=== PATIENT | male | born 1945 | race Caucasian/White ===

== ENCOUNTER → 2016-12-23 | Outpatient (REF) | payer OTHER | LOC: M SMT 12:48 | PROVIDERS: ATTEND Nurse Practitioner Women's Health | DX: R35.0 Frequency of micturition (principal) | CPT/HCPCS: 51798; 81001; 87086; G0463 ==

== ENCOUNTER 2018-01-10 16:08 | Emergency (ER) | payer OTHER ==
[2018-01-10] MEDS: FLUORESCEIN OPHTH 1 MG STRIP OU (17:51)
[2018-01-10] MEDS: valACYclovir HCL 500 MG TAB PO (18:00)
[2018-01-10] MEDS: NORCO, ANEXSIA 5/325MG TABLET (HYDROcodone/ACETAMINOPHEN) PO (18:00)
[2018-01-10] MEDS: ACYCLOVIR 5% OINT 15GM TOP (19:15)
== END 2018-01-10 19:30 | disposition home or self-care (01) ==
LOC: M ED 16:08
DX: B02.9 Zoster without complications (principal); B30.9 Viral conjunctivitis, unspecified; F17.200 Nicotine dependence, unspecified, uncomplicated
CPT/HCPCS: 99283

== ENCOUNTER 2019-03-02 11:27 | Day surgery (SDC) | payer MEDICARE ==
[~2019-03-02] VITALS: Ht 170.2 cm; Wt 83.5 kg
[~2019-03-02 11:27] MED LIST: ASPI81TA26 PO; ATOR1TAB19 PO; CYCL5TAB PO; HYDR-3715 PO; LIDOCAINE 2% W/EPIN INJ 20ML **PRES FREE As Ordered ONE; MIDAZOLAM INJ 2 MG/2 ML VIAL (J2250) As Ordered ONE; POVIDONE-IODINE 5% OPHTH PREP SOL 30ML As Ordered ONE; PREG100CA PO; TYLETAB14 PO; VALT1TAB PO
[2019-03-02] MEDS ORDERED: mitoMYcin 0.2 MG/VIAL KIT FOR OPHTHALMIC USE (J7315 PER 0.2MG) As Ordered ONE (13:46)
[2019-03-02] MEDS ORDERED: fentaNYL 100 MCG/2 ML INJECTION (J3010) As Ordered ONE (13:56)
[2019-03-02] MEDS ORDERED: TOBRADEX OPHTH OINT 3.5 GM As Ordered ONE (14:14)
[2019-03-02 14:55] VITALS: BP 160/73
--- NOTE | 2019-03-03 11:42 | RO ---
DATE OF PROCEDURE: 03/02/2019 PREPROCEDURE DIAGNOSIS: 1. Peripheral progressive pterygium, left eye. POSTPROCEDURE DIAGNOSIS: 1. Peripheral progressive pterygium, left eye. PROCEDURE: 1. Excision of peripheral progressive pterygium of the left eye with use of Tissel glue and placement of a cryopreserved amniotic membrane graft (6 mm x 5 mm) and use of Mitomycin C (0.2% concentration). SURGEON: Dr. Stewart Hough. 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 DESCRIPTION OF PROCEDURE: The patient was seen and examined in the preoperative area. Consents were reviewed and the surgical site was marked. The patient was transferred to the operating room. The eye was prepped and draped in a sterile fashion. A Tegaderm was used to isolate the upper and lower eyelids and a wide lid speculum was placed. 1% lidocaine with epinephrine was injected into the superior and inferior conjunctiva to create a billowing effect. This was spread with a cotton-tip applicator. Approximately 0.2 mL were injected. At that time, using a sharp-tipped Rashad and a 0.12 forceps, the head of the pterygium was excised from the cornea an sent to pathology for examination. The incision was then carried approximately 2 mm posterior to the corneal limbus and this tissue was then discarded. Using a crescent blade, the corneal surface was then polished until a smooth surface was obtained. Gentle wet-field cautery was applied as needed for any light bleeding. Any visible tenon capsule was then removed using a smooth-tipped forceps and then discarded. The conjunctival defect was measured to be approximately 6 x 5 mm. A cryopreserved amniotic membrane graft was fashioned to this size and then placed onto the eye base of membrane side up. Mitomycin C was then mixed at the back table. A mitomycin C soaked sponge was placed into the conjunctiva pocket for approximately 30 seconds and then washed vigorously with three vials of balanced salt solution (BSS). The amniotic graft was placed on the surface of the eye. Tissel glue was then brought to the patient's eye and then placed with two drops of fibrin and then two drops of thrombin and then the graft was flipped over so the base of the membrane was down. This was then smooth with bent tying forceps until the graft was adherent. The using a tissue-tuck technique, the edges were sealed with bent forceps to the amniotic membrane graft. Patient tolerated the procedure well. A bandage contact lens was placed, TobraDex ointment and patch and shield were placed. Patient was discharged to the postanesthesia care unit (PACU) in stable condition. LION
== END 2019-03-02 15:10 | disposition home or self-care (01) ==
LOC: M SDC 11:27
PROVIDERS: ATTEND Ophthalmology
DX: H11.052 Peripheral pterygium, progressive, left eye (principal); M06.9 Rheumatoid arthritis, unspecified; Z79.899 Other long term (current) drug therapy; Z79.82 Long term (current) use of aspirin; F17.210 Nicotine dependence, cigarettes, uncomplicated
CPT/HCPCS: 65426; 88304; A6024; C1762; J2250; J3010; J7315

== ENCOUNTER 2019-03-06 08:27 | Emergency (ER) | payer MEDICARE ==
[~2019-03-06] VITALS: Ht 170.2 cm; Wt 79.1 kg
[~2019-03-06 08:27] MED LIST changes: -LIDOCAINE 2% W/EPIN INJ 20ML **PRES FREE As Ordered ONE; -MIDAZOLAM INJ 2 MG/2 ML VIAL (J2250) As Ordered ONE; -POVIDONE-IODINE 5% OPHTH PREP SOL 30ML As Ordered ONE
[2019-03-06] MEDS ORDERED: BESI0.6S (08:38)
[2019-03-06] MEDS ORDERED: PREDOPD (08:38)
[2019-03-06] MEDS ORDERED: FLUORESCEIN OPHTH 1 MG STRIP OS ONE (09:30)
[2019-03-06] MEDS ORDERED: TETRACAINE 0.5% OPHTH SOLN 4ML OS ONE (09:45)
[2019-03-06 09:59] LABS: BASO % 0.3 % (0.0-1.0); EOS # 0.2 10^3/uL (0.0-0.50); EOS % 2.4 % (0.0-3.0); HEMATOCRIT 43.1 % (42.0-52.0); HEMOGLOBIN 13.7 g/dl (13.5-17.5); LYMPH # 2.1 10^3/uL (1.5-4.5); LYMPH % 33.8 % (24.0-44.0); MEAN CORPUSCULAR HEMOGLOBIN 28.4 pg (27.0-33.0); MEAN CORPUSCULAR HGB CONC 31.8 g/dl (32.0-36.5); MEAN CORPUSCULAR VOLUME 89.4 fl (80.0-96.0); MONO # 0.5 10^3/uL (0.0-0.8); MONO % 8.2 % (0.0-5.0); NEUTROPHILS # 3.5 10^3/uL (1.8-7.7); NEUTROPHILS % 55.1 % (36.0-66.0); PLATELET COUNT, AUTOMATED 243 10^3/uL (150-450); RED BLOOD COUNT 4.82 10^6/uL (4.30-6.10); WHITE BLOOD COUNT 6.3 10^3/uL (4.0-10.0)
[2019-03-06 10:20] LABS: ERYTHROCYTE SEDIMENTATION RATE 8 mm/hr (0-20)
[2019-03-06 10:28] LABS: BLOOD UREA NITROGEN 17 MG/DL (7-18); C REACTIVE PROTEIN QUANTITATIV 0.92 MG/DL (0.00-0.30); CARBON DIOXIDE LEVEL 28 MEQ/L (21-32); CHLORIDE LEVEL 108 MEQ/L (98-107); CREATININE FOR GFR 0.93 MG/DL (0.70-1.30); GLOMERULAR FILTRATION RATE > 60.0 (>42); GLUCOSE, FASTING 95 MG/DL (70-100); POTASSIUM SERUM 4.6 MEQ/L (3.5-5.1); SODIUM LEVEL 139 MEQ/L (136-145)
[2019-03-06 12:34] VITALS: BP 146/77
== END 2019-03-06 12:36 | disposition home or self-care (01) ==
LOC: M ED 08:27
DX: G89.18 Other acute postprocedural pain (principal); R51 Headache; E78.5 Hyperlipidemia, unspecified; M54.9 Dorsalgia, unspecified; F17.200 Nicotine dependence, unspecified, uncomplicated; Z79.899 Other long term (current) drug therapy; Z79.82 Long term (current) use of aspirin

== ENCOUNTER → 2019-07-13 | Outpatient (REF) | payer MEDICARE ==
[~2019-07-13] MED LIST changes: +BESI0.6S; +PREDOPD
[2019-07-13 18:59] LABS: BASO % 0.2 % (0.0-1.0); EOS % 0.4 % (0.0-3.0); HEMATOCRIT 37.3 % (42.0-52.0); HEMOGLOBIN 12.4 g/dl (13.5-17.5); LYMPH # 0.6 10^3/uL (1.5-5.0); MEAN CORPUSCULAR HEMOGLOBIN 29.8 pg (27.0-33.0); MEAN CORPUSCULAR HGB CONC 33.2 g/dl (32.0-36.5); MEAN CORPUSCULAR VOLUME 89.7 fl (80.0-96.0); MONO # 0.6 10^3/uL (0.0-0.8); MONO % 12.9 % (0.0-5.0); NEUTROPHILS # 3.3 10^3/uL (1.5-8.5); NEUTROPHILS % 72.5 % (36.0-66.0); PLATELET COUNT, AUTOMATED 185 10^3/uL (150-450); RED BLOOD COUNT 4.16 10^6/uL (4.30-6.10); WHITE BLOOD COUNT 4.6 10^3/uL (4.0-10.0)
[2019-07-13 19:22] LABS: ALBUMIN 3.6 GM/DL (3.2-5.2); ALT/SGPT 21 U/L (12-78); BILIRUBIN,TOTAL 0.3 MG/DL (0.2-1.0); BLOOD UREA NITROGEN 13 MG/DL (7-18); CALCIUM LEVEL 8.4 MG/DL (8.8-10.2); CARBON DIOXIDE LEVEL 26 MEQ/L (21-32); CHLORIDE LEVEL 102 MEQ/L (98-107); CREATININE FOR GFR 0.95 MG/DL (0.70-1.30); GLOMERULAR FILTRATION RATE > 60.0 (>42); GLUCOSE, FASTING 107 MG/DL (70-100); POTASSIUM SERUM 4.3 MEQ/L (3.5-5.1); SODIUM LEVEL 136 MEQ/L (136-145); TOTAL PROTEIN 6.9 GM/DL (6.4-8.2)
[2019-07-16 00:06] LABS: Lyme Disease IgG/IgM Antibodie <0.91 ISR (0.00-0.90); Lyme Disease IgM Ab Quantitati <0.80 index (0.00-0.79)
== END ==
LOC: M LABDRWAD 18:40
PROVIDERS: ATTEND Physician Assistant
DX: R50.9 Fever, unspecified (principal)

== ENCOUNTER → 2019-07-13 | Outpatient (CLI) | payer MEDICARE ==
--- NOTE | 2019-07-13 17:55 | REP ---
Chest x-ray: Two views. History: Fever. No comparison study. Findings: The lungs are slightly hyperinflated but free of infiltrate. The pleural angles are sharp. Heart size is normal. The thoracic aorta somewhat tortuous. No acute bony abnormality is seen. There are old healed rib fractures on the right. Impression: No active disease. Electronically Signed by Orlando Costello MD 07/13/2019 05:46 P
== END ==
LOC: M ADAMS 16:59
PROVIDERS: ATTEND Physician Assistant Medical
DX: R50.9 Fever, unspecified (principal)

== ENCOUNTER 2019-11-17 07:26 | Emergency (ER) | payer MEDICARE ==
[~2019-11-17] VITALS: Ht 170.2 cm; Wt 84.8 kg
[2019-11-17] MEDS ORDERED: ALBUTEROL SULFATE 2.5 MG/0.5 ML INH NEB SOLN NEB ONE (08:30)
[2019-11-17 09:05] LABS: BASO % 0.1 % (0.0-1.0); EOS # 0.1 10^3/uL (0.0-0.5); EOS % 0.4 % (0.0-3.0); HEMATOCRIT 40.8 % (42.0-52.0); LYMPH # 1.8 10^3/uL (1.5-5.0); LYMPH % 13.2 % (24.0-44.0); MEAN CORPUSCULAR HEMOGLOBIN 29.5 pg (27.0-33.0); MEAN CORPUSCULAR HGB CONC 31.9 g/dl (32.0-36.5); MEAN CORPUSCULAR VOLUME 92.7 fl (80.0-96.0); MONO # 0.6 10^3/uL (0.0-0.8); MONO % 4.3 % (0.0-5.0); NEUTROPHILS # 11.3 10^3/uL (1.5-8.5); NEUTROPHILS % 81.6 % (36.0-66.0); PLATELET COUNT, AUTOMATED 235 10^3/uL (150-450); WHITE BLOOD COUNT 13.8 10^3/uL (4.0-10.0)
--- NOTE | 2019-11-17 09:23 | REP ---
Chest x-ray: Two views. History: Shortness of breath. Comparison chest x-ray: July 13, 2019. Findings: There is new right paratracheal mediastinal fullness suggestive of adenopathy. Recommend CT study of the chest, preferably with IV contrast. The main mediastinal contours are unchanged and unremarkable. The aorta is somewhat tortuous. Heart is not enlarged. There is minimal linear fibrosis in the left base. There are old healed rib fractures on the right again noted. Lungs are otherwise clear. Impression: New right paratracheal mediastinal mass effect consistent with adenopathy. Recommend chest CT, preferably with IV contrast. Electronically Signed by Orlando Costello MD 11/17/2019 09:15 A
[2019-11-17 09:29] LABS: BLOOD UREA NITROGEN 29 MG/DL (7-18); CALCIUM LEVEL 8.7 MG/DL (8.8-10.2); CARBON DIOXIDE LEVEL 28 MEQ/L (21-32); CHLORIDE LEVEL 104 MEQ/L (98-107); CK-MB VALUE MASS 1.6 NG/ML (<3.6); CPK CREATINE PHOSPHOKINASE 53 U/L (39-308); CREATININE FOR GFR 1.01 MG/DL (0.70-1.30); GLOMERULAR FILTRATION RATE > 60.0 (>42); GLUCOSE, FASTING 95 MG/DL (70-100); MB/CK RELATIVE INDEX 3.02 (< OR =4); POTASSIUM SERUM 4.4 MEQ/L (3.5-5.1); SODIUM LEVEL 139 MEQ/L (136-145); TROPONIN I < 0.02 NG/ML (< 0.10)
[2019-11-17] MEDS ORDERED: ISOVUE-370 76% 100ML VIAL (Q9967) As Ordered ONE (10:40)
[2019-11-17 11:07] LABS: ERYTHROCYTE SEDIMENTATION RATE 5 mm/hr (0-20)
--- NOTE | 2019-11-17 11:42 | REP ---
INDICATION: Rule out mass PROCEDURE: CT head with and without contrast COMPARISON STUDIES: No prior similar studies FINDINGS: No acute bleed or acute large vessel territorial infarct. No fracture. Ventricles, cisterns and sulci within normal limits for age. No mass effect or midline shift. No abnormal fluid collections. Paranasal sinuses and mastoid air cells are clear. Following contrast, no abnormal enhancement. IMPRESSION: No acute findings. No evidence of mass lesion. Electronically Signed by Vince Santoro MD 11/17/2019 11:34 A
[2019-11-17 12:36] LABS: C REACTIVE PROTEIN QUANTITATIV < 0.30 MG/DL (0.00-0.30)
--- NOTE | 2019-11-17 12:39 | REP ---
CT CHEST WITH IV CONTRAST: TECHNIQUE: Axial contrast enhanced images from the thoracic inlet to the upper abdomen using 100 mL Isovue 370 intravenous contrast material with multiplanar reformations. Large right paratracheal soft tissue mass is seen measuring approximately 6.5 x 6.7 x 5.6 cm. This is somewhat anteriorly located with the epicenter at the superior margin of the aortic arch. Superior vena cava is moderately compressed and narrowed. There is slight deviation of the trachea to the left. No other mediastinal or hilar mass is seen. Thoracic aorta demonstrates no aneurysm or dissection. The heart is normal in size. There is mild pericardial fluid. No pleural fluid is seen. There is no axillary adenopathy. Mild scattered fibrotic changes are seen in the lungs without suspicious nodular opacity. There is a calcified granuloma at the dome of the liver. There are a few left renal cysts. There are degenerative changes of the spine. IMPRESSION: Large right mediastinal mass with the epicenter at the superior margin of the aortic arch. There is compression and narrowing of a moderate degree of the superior vena cava. No other mass or nodule is seen in the chest. Unreviewed
[2019-11-17 14:12] VITALS: BP 178/100
--- NOTE | 2019-11-18 09:49 | ECGEPIP ---
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
[2019-11-18 15:06] LABS: ANTINUCLEAR ANTIBODIES DIRECT Negative (Negative)
== END 2019-11-17 14:15 | disposition short-term general hospital (02) ==
LOC: M ED 07:26
DX: I87.1 Compression of vein (principal); J98.59 Other diseases of mediastinum, not elsewhere classified; I45.19 Other right bundle-branch block; H02.842 Edema of right lower eyelid; H02.845 Edema of left lower eyelid; Z86.19 Personal history of other infectious and parasitic diseases; E78.5 Hyperlipidemia, unspecified; G89.29 Other chronic pain; M54.9 Dorsalgia, unspecified; F17.200 Nicotine dependence, unspecified, uncomplicated; Z79.82 Long term (current) use of aspirin; Z79.899 Other long term (current) drug therapy
CPT/HCPCS: 70470; 71046; 71260; 80048; 81001; 82550; 82553; 84484; 85025; 85652; 86038; 86140; 86200; 86431; 93005; 94640; 99284; Q9967

== ENCOUNTER → 2020-11-30 | Outpatient (CLI) | payer MEDICARE ==
[~2020-11-30] MED LIST changes: +ACET300T47 PO; +ALBU8.5H; +MELA10CA2 PO; +REST0.05 OD; +TREL1AER PO; +TYLENOL; +XARE20TA PO; +[UNRECOGNIZED DRUG - OTHER]
== END ==
LOC: M LABSMTC 09:14
PROVIDERS: ATTEND Anesthesiology
DX: Z01.812 Encounter for preprocedural laboratory examination (principal); Z20.822 Contact with and (suspected) exposure to COVID-19

== ENCOUNTER 2020-12-05 10:53 | Day surgery (SDC) | payer MEDICARE ==
[~2020-12-05] VITALS: Ht 167.6 cm; Wt 85.9 kg
[~2020-12-05 10:53] MED LIST changes: +MIDAZOLAM INJ 2MG/2ML VIAL (J2250 PER 1MG) As Ordered ONE; +OFLOXACIN 0.3 % (OCUFLOX) OPTH SOL 5ML OS ONE; +PHENYLEPHRINE 2.5% OPHTH SOL 2ML OS ONE; +PROPARACAINE 0.5% OPHTH SOL 15ML OS ONE; +TROPICAMIDE 1% OPHTH SOLN 2ML OS ONE; +fentaNYL 100 MCG/2 ML INJECTION (J3010) As Ordered ONE
[2020-12-05] MEDS ORDERED: POVIDONE-IODINE 5% OPHTH PREP SOL 30ML As Ordered ONE (10:54)
[2020-12-05] MEDS ORDERED: DUOVISC (0.50ML VISCOAT/0.55ML PROVISC) OPHTH KIT As Ordered ONE (10:54)
[2020-12-05] MEDS ORDERED: CEFUROXIME 1MG/0.1ML INTRACAMERAL INJ As Ordered ONE (10:54)
[2020-12-05] MEDS ORDERED: BSS IRR 500ML/OMIDRIA 4ML IRR BAG (OR ONLY) As Ordered ONE (12:44)
[2020-12-05 13:35] VITALS: BP 155/80
--- NOTE | 2020-12-06 10:36 | RO ---
OPERATIVE NOTE DATE OF OPERATION: 12/05/2020 PREOPERATIVE DIAGNOSIS: 1. Visually significant nuclear sclerotic cataract, left eye. POSTOPERATIVE DIAGNOSIS: 1. Visually significant nuclear sclerotic cataract, left eye. PROCEDURE: 1. Cataract extraction with use of phacoemulsification, and placement of intraocular lens, AU00T0, 20.0 D, left eye. SURGEON: Stewart Hough DO ANESTHESIA: Local (Omidria with MAC) COMPLICATIONS: None POSTOPERATIVE CONDITION: Stable INDICATIONS FOR SURGERY: 1. Blurred vision affecting patient's activities of daily living. DESCRIPTION OF PROCEDURE: The patient was seen in the preoperative area and properly identified. The correct operative eye was identified and marked. The patient received topical anesthetic, antibiotics, and topical dilating drops. The patient was then transferred to the operating room. The correct side was re-identified and a time-out was performed. The eye was prepped and draped in a sterile fashion. The eyelids were isolated with Tegaderm tape and the lids were held open with an adjustable speculum. A 1.0mm paracentesis incision was made. Omidria was then injected into the anterior chamber. Viscoelastic was then injected into the anterior chamber through the paracentesis. Using a 2.4mm sharp-tipped keratome, the anterior chamber was entered via a temporal clear cornea incision. A continuous curvilinear capsulorrhexis was created with Utrata forceps. Hydrodissection was performed with BSS on a blunt cannula until the nucleus was able to rotate freely. The crystalline lens was phacoemulsified and aspirated. Irrigation/aspiration was used to remove the cortical material Cohesive viscoelastic was placed into the capsular bag to deepen it. The implant was placed into the capsular bag and allowed to unfold. Placement was confirmed by visualizing the anterior capsulorrhexis. Irrigation/aspiration was used to remove the viscoelastic. The clear corneal incision was hydrated with BSS on a blunt cannula. The lens was well positioned. Intracameral antibiotic was injected into the anterior chamber. The incisions were then tested for leaks and found to be negative. The eye was then palpated for appropriate pressure and adjusted accordingly with BSS. The eyelid speculum was then carefully removed. A shield was placed over the eye. The patient tolerated the procedure well and was discharge to the recovery unit in a stable condition.
== END 2020-12-05 13:35 | disposition home or self-care (01) ==
LOC: M SDC 10:53
PROVIDERS: ATTEND Ophthalmology
DX: H25.12 Age-related nuclear cataract, left eye (principal); I10 Essential (primary) hypertension; E78.5 Hyperlipidemia, unspecified; Z79.01 Long term (current) use of anticoagulants; Z92.21 Personal history of antineoplastic chemotherapy; F17.218 Nicotine dependence, cigarettes, with other nicotine-induced disorders; C34.91 Malignant neoplasm of unspecified part of right bronchus or lung
CPT/HCPCS: 66984; J1097; J2250; J3010; V2632

== ENCOUNTER → 2021-01-08 | Outpatient (CLI) | payer MEDICARE ==
[~2021-01-08] MED LIST changes: -MIDAZOLAM INJ 2MG/2ML VIAL (J2250 PER 1MG) As Ordered ONE; -OFLOXACIN 0.3 % (OCUFLOX) OPTH SOL 5ML OS ONE; -PHENYLEPHRINE 2.5% OPHTH SOL 2ML OS ONE; -PROPARACAINE 0.5% OPHTH SOL 15ML OS ONE; -TROPICAMIDE 1% OPHTH SOLN 2ML OS ONE; -fentaNYL 100 MCG/2 ML INJECTION (J3010) As Ordered ONE
== END ==
LOC: M LABSMTC 12:34
PROVIDERS: ATTEND Anesthesiology
DX: Z01.812 Encounter for preprocedural laboratory examination (principal); Z20.822 Contact with and (suspected) exposure to COVID-19

== ENCOUNTER 2021-01-13 09:09 | Day surgery (SDC) | payer MEDICARE ==
[~2021-01-13] VITALS: Ht 170.2 cm; Wt 85.3 kg
[~2021-01-13 09:09] MED LIST changes: +CEFUROXIME 1MG/0.1ML INTRACAMERAL INJ As Ordered ONE; +DUOVISC (0.50ML VISCOAT/0.55ML PROVISC) OPHTH KIT As Ordered ONE; +OFLOXACIN 0.3 % (OCUFLOX) OPTH SOL 5ML OD ONE; +PHENYLEPHRINE 2.5% OPHTH SOL 2ML OD ONE; +POVIDONE-IODINE 5% OPHTH PREP SOL 30ML As Ordered ONE; +PROPARACAINE 0.5% OPHTH SOL 15ML OD ONE; +TROPICAMIDE 1% OPHTH SOLN 2ML OD ONE
[2021-01-13] MEDS ORDERED: fentaNYL 100 MCG/2 ML INJECTION (J3010) As Ordered ONE (09:22)
[2021-01-13] MEDS ORDERED: MIDAZOLAM INJ 2MG/2ML VIAL (J2250 PER 1MG) As Ordered ONE (09:22)
[2021-01-13] MEDS ORDERED: BSS IRR 500ML/OMIDRIA 4ML IRR BAG (OR ONLY) As Ordered ONE (11:10)
[2021-01-13 11:50] VITALS: BP 137/81
--- NOTE | 2021-01-14 10:02 | RO ---
OPERATIVE NOTE DATE OF OPERATION: 01/13/2021 PREOPERATIVE DIAGNOSIS: 1. Visually significant dense nuclear sclerotic cataract, right eye. POSTOPERATIVE DIAGNOSIS: 1. Visually significant dense nuclear sclerotic cataract, right eye. PROCEDURE: 1. Extracapsular cataract extraction with insertion of intraocular lens, AU00T0, 20.5 D, right eye. SURGEON: Stewart Hough DO ANESTHESIA: Local (Omidria with MAC) COMPLICATIONS: None POSTOPERATIVE CONDITION: Stable INDICATIONS FOR SURGERY: 1. Blurred vision affecting patient's activities of daily living. DESCRIPTION OF PROCEDURE: The patient was seen in the preoperative area and properly identified. The correct operative eye was identified and marked. The patient received topical anesthetic, antibiotics, and topical dilating drops. The patient was then transferred to the operating room. The correct side was re-identified and a time-out was performed. The eye was prepped and draped in a sterile fashion. The eyelids were isolated with Tegaderm tape and the lids were held open with an adjustable speculum. A 1.0mm paracentesis incision was made. Omidria was then injected into the anterior chamber. Viscoelastic was then injected into the anterior chamber through the paracentesis. Using a 2.4mm sharp-tipped keratome, the anterior chamber was entered via a temporal clear cornea incision. A continuous curvilinear capsulorrhexis was created with Utrata forceps. Hydrodissection was performed with BSS on a blunt cannula until the nucleus was able to rotate freely. The crystalline lens was phacoemulsified and aspirated. Irrigation/aspiration was used to remove the cortical material Cohesive viscoelastic was placed into the capsular bag to deepen it. The implant was placed into the capsular bag and allowed to unfold. Placement was confirmed by visualizing the anterior capsulorrhexis. Irrigation/aspiration was used to remove the viscoelastic. The clear corneal incision was hydrated with BSS on a blunt cannula. The lens was well positioned. Intracameral antibiotic was injected into the anterior chamber. The incisions were then tested for leaks and found to be negative. The eye was then palpated for appropriate pressure and adjusted accordingly with BSS. The eyelid speculum was then carefully removed. A shield was placed over the eye. The patient tolerated the procedure well and was discharge to the recovery unit in a stable condition.
== END 2021-01-13 11:55 | disposition home or self-care (01) ==
LOC: M SDC 09:09
PROVIDERS: ATTEND Ophthalmology
DX: H25.11 Age-related nuclear cataract, right eye (principal); I10 Essential (primary) hypertension; E78.5 Hyperlipidemia, unspecified; F17.218 Nicotine dependence, cigarettes, with other nicotine-induced disorders; J44.9 Chronic obstructive pulmonary disease, unspecified; C34.91 Malignant neoplasm of unspecified part of right bronchus or lung; Z92.21 Personal history of antineoplastic chemotherapy; Z79.01 Long term (current) use of anticoagulants; Z79.82 Long term (current) use of aspirin; Z79.899 Other long term (current) drug therapy
CPT/HCPCS: 66984; J1097; J2250; J3010; V2632

== ENCOUNTER → 2023-03-10 | Outpatient (REF) | payer MEDICARE ==
[~2023-03-10] MED LIST changes: -CEFUROXIME 1MG/0.1ML INTRACAMERAL INJ As Ordered ONE; -DUOVISC (0.50ML VISCOAT/0.55ML PROVISC) OPHTH KIT As Ordered ONE; -OFLOXACIN 0.3 % (OCUFLOX) OPTH SOL 5ML OD ONE; -PHENYLEPHRINE 2.5% OPHTH SOL 2ML OD ONE; -POVIDONE-IODINE 5% OPHTH PREP SOL 30ML As Ordered ONE; -PROPARACAINE 0.5% OPHTH SOL 15ML OD ONE; -TROPICAMIDE 1% OPHTH SOLN 2ML OD ONE
== END ==
LOC: M LAB REF 18:10
PROVIDERS: ATTEND Surgery
DX: D22.4 Melanocytic nevi of scalp and neck (principal)

== ENCOUNTER → 2024-02-04 | Outpatient (CLI) | payer MEDICARE | LOC: M PLAIMG 09:52 | PROVIDERS: ATTEND Nurse Practitioner Family | DX: R47.81 Slurred speech (principal) ==